=== PATIENT | male | born 1980 ===

== ENCOUNTER 2020-02-23 06:30 | Inpatient (IN) | payer MEDICAID ==
[~2020-02-23] VITALS: Ht 172.7 cm; Wt 51.3 kg
[2020-02-23] MEDS ORDERED: POLYETHYLENE GLYCOL 17 GM PACKET PO PRN (07:00)
[2020-02-23] MEDS ORDERED: BISACODYL 10 MG SUPP PR PRN (07:00)
[2020-02-23] MEDS ORDERED: DOCUSATE 100 MG CAPSULE PO PRN (07:00)
[2020-02-23] MEDS ORDERED: ONDANSETRON ODT 4 MG PO PRN (07:00)
[2020-02-23 12:15] VITALS: BP 124/92
[2020-02-23] MEDS ORDERED: ALBU6.7H8 INH (14:24)
[2020-02-23] MEDS ORDERED: BUSP10TA PO (14:24)
[2020-02-23] MEDS ORDERED: DULO30CA4 PO (14:24)
[2020-02-23] MEDS ORDERED: INSU100V8 SQ (14:24)
[2020-02-23] MEDS ORDERED: INSU100C SQ-INSULIN (14:24)
[2020-02-23] MEDS ORDERED: PLEASE ENTER HEIGHT AND WEIGHT MC SCH (15:00)
[2020-02-23] MEDS ORDERED: ALBUTEROL HFA 90 MCG/SPRAY INH PRN (15:00)
[2020-02-23] MEDS: NICOTINE 21 MG/24 HR PATCH.TD24 TD SCH (15:31)
[2020-02-23] MEDS ORDERED: LORazepam 1MG TABLET PO ONE (16:00)
[2020-02-23] MEDS ORDERED: INSULIN LISPRO 100 UNITS/ML, PEN SQ-INSULIN SCH (16:00)
[2020-02-23 16:21] LABS: MICROSCOPIC NOT IND
[2020-02-23] MEDS ORDERED: INSULIN LISPRO 100 UNITS/ML, PEN SQ-INSULIN ONE (18:00)
[2020-02-23 18:28] LABS: ANION GAP 9 mmol/L (5-15); CALCIUM 9.2 mg/dL (8.5-10.1); CHLORIDE 93 mmol/L (98-107); CREATININE 1.02 mg/dL (0.7-1.3)
[2020-02-23 19:54] VITALS: BP 0/0
[2020-02-23] MEDS: INSULIN GLARGINE 100 UNITS/ML, PEN SQ-INSULIN SCH (20:16)
[2020-02-23] MEDS: INSULIN LISPRO 100 UNITS/ML, PEN SQ-INSULIN SCH (20:16)
[2020-02-23] MEDS ORDERED: INSULIN GLARGINE 100 UNITS/ML, PEN SQ-INSULIN SCH (21:00)
[2020-02-23] MEDS ORDERED: PANCRELIPASE 24,000 CAPSULE.DR PO SCH (21:00)
[2020-02-23] MEDS ORDERED: QUETIAPINE 25MG TABLET PO PRN (22:30)
[2020-02-24 07:40] VITALS: BP 116/84
[2020-02-24] MEDS: INSULIN LISPRO 100 UNITS/ML, PEN SQ-INSULIN SCH ×4 (07:59→21:20)
[2020-02-24] MEDS: NICOTINE 21 MG/24 HR PATCH.TD24 TD SCH (08:01)
[2020-02-24] MEDS: INSULIN GLARGINE 100 UNITS/ML, PEN SQ-INSULIN SCH ×2 (08:01→21:21)
[2020-02-24] MEDS: PANCRELIPASE 24,000 CAPSULE.DR PO SCH ×3 (08:06→17:09)
[2020-02-24 08:34] LABS: ANION GAP 12 mmol/L (5-15); CALCIUM 9.9 mg/dL (8.5-10.1); CHLORIDE 100 mmol/L (98-107)
[2020-02-24 08:41] LABS: CHOL/HDL RATIO 2.5; FREE T4 (FREE THYROXINE) 1.06 ng/dL (0.76-1.46); LDL/HDL RATIO 1.2 (0.5-3.0)
[2020-02-24 12:51] LABS: ANION GAP 10 mmol/L (5-15); CALCIUM 9.4 mg/dL (8.5-10.1); CHLORIDE 98 mmol/L (98-107); CREATININE 0.85 mg/dL (0.7-1.3)
[2020-02-24] MEDS ORDERED: SODIUM CHLORIDE 0.9% 1,000ML IVBOLUS ONE (13:00)
[2020-02-24] MEDS ORDERED: INSULIN LISPRO 100 UNITS/ML, PEN SQ-INSULIN ONE (14:00)
[2020-02-24] MEDS ORDERED: LORazepam 1MG TABLET ONE (14:42)
[2020-02-24] MEDS ORDERED: LORazepam 1MG TABLET PO PRN (15:00)
[2020-02-24] MEDS: LORazepam 1MG TABLET PO PRN ×2 (15:25→21:22)
[2020-02-24] MEDS: QUETIAPINE 25MG TABLET PO PRN (17:09)
[2020-02-24 19:47] VITALS: BP 108/75
[2020-02-24] MEDS: ACETAMINOPHEN 325 MG TABLET PO PRN (19:55)
[2020-02-24] MEDS ORDERED: INSULIN LISPRO 100 UNITS/ML, PEN SQ-INSULIN SCH (21:00)
[2020-02-25] MEDS: QUETIAPINE 25MG TABLET PO PRN ×4 (01:44→22:55)
[2020-02-25] MEDS: LORazepam 1MG TABLET PO PRN ×3 (06:45→19:27)
[2020-02-25 07:06] VITALS: BP 109/79
[2020-02-25] MEDS: THIAMINE 100MG TABLET PO SCH (08:22)
[2020-02-25] MEDS: PANCRELIPASE 24,000 CAPSULE.DR PO SCH ×3 (08:22→16:40)
[2020-02-25] MEDS: FOLIC ACID 1 MG TABLET PO SCH (08:22)
[2020-02-25] MEDS: NICOTINE 21 MG/24 HR PATCH.TD24 TD SCH (08:22)
[2020-02-25] MEDS: VENLAFAXINE XR 37.5MG CAP.ER.24H PO SCH (08:22)
[2020-02-25] MEDS: INSULIN LISPRO 100 UNITS/ML, PEN SQ-INSULIN SCH ×4 (08:23→20:44)
[2020-02-25] MEDS: INSULIN GLARGINE 100 UNITS/ML, PEN SQ-INSULIN SCH ×2 (08:24→20:44)
[2020-02-25 08:27] LABS: ANION GAP 7 mmol/L (5-15); CALCIUM 8.6 mg/dL (8.5-10.1); CHLORIDE 99 mmol/L (98-107)
[2020-02-25 08:28] LABS: CREATININE 0.65 mg/dL (0.7-1.3)
[2020-02-25] MEDS: ACETAMINOPHEN 325 MG TABLET PO PRN (19:27)
[2020-02-25 19:38] VITALS: BP 109/79
[2020-02-26] MEDS: LORazepam 1MG TABLET PO PRN ×3 (05:32→17:25)
[2020-02-26] MEDS: ACETAMINOPHEN 325 MG TABLET PO PRN (05:33)
[2020-02-26 07:08] VITALS: BP 110/70
[2020-02-26] MEDS: THIAMINE 100MG TABLET PO SCH (08:06)
[2020-02-26] MEDS: FOLIC ACID 1 MG TABLET PO SCH (08:06)
[2020-02-26] MEDS: VENLAFAXINE XR 37.5MG CAP.ER.24H PO SCH (08:06)
[2020-02-26] MEDS: PANCRELIPASE 24,000 CAPSULE.DR PO SCH ×3 (08:06→17:25)
[2020-02-26] MEDS: QUETIAPINE 25MG TABLET PO PRN ×3 (08:07→19:31)
[2020-02-26] MEDS: INSULIN LISPRO 100 UNITS/ML, PEN SQ-INSULIN SCH ×4 (08:09→20:53)
[2020-02-26] MEDS: NICOTINE 21 MG/24 HR PATCH.TD24 TD SCH (08:09)
[2020-02-26] MEDS ORDERED: INSULIN GLARGINE 100 UNITS/ML, PEN SQ-INSULIN SCH (09:00)
[2020-02-26 18:14] LABS: ALANINE AMINOTRANSFERASE 35 U/L (12-78); ALBUMIN 3.7 g/dL (3.4-5.0); ANION GAP 11 mmol/L (5-15); CALCIUM 9.2 mg/dL (8.5-10.1); CHLORIDE 102 mmol/L (98-107)
[2020-02-26 18:16] LABS: ALKALINE PHOSPHATASE 87 U/L (45-117); BILIRUBIN,TOTAL 0.3 mg/dL (0.2-1.0); TOTAL PROTEIN 6.8 g/dL (6.4-8.2)
[2020-02-26] MEDS ORDERED: DEXTROSE 50%, 50ML SYRINGE IVPush PRN (19:00)
[2020-02-26] MEDS ORDERED: MAGNESIUM SULFATE PMX 2GM/50ML 50 ML IV ONE (19:00)
[2020-02-26] MEDS ORDERED: DEXTROSE 4 GM TAB.CHEW PO PRN (19:00)
[2020-02-26] MEDS ORDERED: GLUCAGON 1 MG IM PRN (19:00)
[2020-02-26 19:24] LABS: BASOPHILS % (AUTO) 0 % (0-1); EOSINOPHILS % (AUTO) 2 % (1-7); LYMPHOCYTES % (AUTO) 38 % (22-44); MEAN CORPUSCULAR HGB CONC 34.8 g/dL (33.2-36.2); MONOCYTES % (AUTO) 10 % (2-9); NEUTROPHILS % (AUTO) 50 % (42-75); PLATELET COUNT 184 x10^3/uL (130-400); RED BLOOD COUNT 4.68 x10^6/uL (4.38-5.82); RED CELL DISTRIBUTION WIDTH 13.2 % (9.4-14.8)
[2020-02-26 19:25] LABS: MD NO
[2020-02-26] MEDS: SODIUM CHLORIDE FLUSH 10ML SYR IVF SCH (19:35)
[2020-02-26 19:46] VITALS: BP 111/79
[2020-02-26] MEDS: INSULIN GLARGINE 100 UNITS/ML, PEN SQ-INSULIN SCH (20:53)
[2020-02-26] MEDS: QUETIAPINE 100MG TABLET PO SCH (21:00)
[2020-02-27] MEDS: LORazepam 1MG TABLET PO PRN ×4 (01:44→20:47)
[2020-02-27 05:20] LABS: BASOPHILS % (AUTO) 1 % (0-1); EOSINOPHILS % (AUTO) 2 % (1-7); LYMPHOCYTES % (AUTO) 35 % (22-44); MEAN CORPUSCULAR HEMOGLOBIN 33.7 pg (27.5-34.5); MEAN CORPUSCULAR HGB CONC 34.4 g/dL (33.2-36.2); MEAN PLATELET VOLUME 7.8 fL (7.4-10.4); MONOCYTES % (AUTO) 11 % (2-9); NEUTROPHILS % (AUTO) 52 % (42-75); PLATELET COUNT 178 x10^3/uL (130-400); RED BLOOD COUNT 4.58 x10^6/uL (4.38-5.82)
[2020-02-27 05:25] LABS: MD NO
[2020-02-27 05:26] LABS: ALANINE AMINOTRANSFERASE 44 U/L (12-78); ALBUMIN 3.4 g/dL (3.4-5.0); ANION GAP 8 mmol/L (5-15); CALCIUM 8.4 mg/dL (8.5-10.1); CHLORIDE 101 mmol/L (98-107)
[2020-02-27 05:29] LABS: ALKALINE PHOSPHATASE 78 U/L (45-117); BILIRUBIN,TOTAL 0.3 mg/dL (0.2-1.0); CREATINE KINASE, TOTAL 38 U/L (39-308); CREATININE 0.83 mg/dL (0.7-1.3); TOTAL PROTEIN 6.1 g/dL (6.4-8.2)
[2020-02-27] MEDS: QUETIAPINE 25MG TABLET PO PRN ×3 (06:33→18:35)
[2020-02-27 07:14] VITALS: BP 110/71
[2020-02-27] MEDS: INSULIN LISPRO 100 UNITS/ML, PEN SQ-INSULIN SCH ×4 (08:06→20:45)
[2020-02-27] MEDS: PANCRELIPASE 24,000 CAPSULE.DR PO SCH ×3 (08:22→17:03)
[2020-02-27] MEDS: THIAMINE 100MG TABLET PO SCH (08:22)
[2020-02-27] MEDS: FOLIC ACID 1 MG TABLET PO SCH (08:22)
[2020-02-27] MEDS: VENLAFAXINE 75 MG CAP ER PO SCH (08:22)
[2020-02-27] MEDS: NICOTINE 21 MG/24 HR PATCH.TD24 TD SCH (08:23)
[2020-02-27] MEDS: SODIUM CHLORIDE FLUSH 10ML SYR IVF SCH ×2 (08:24→20:49)
[2020-02-27] MEDS ORDERED: INSULIN GLARGINE 100 UNITS/ML, PEN SQ-INSULIN SCH ×2 (09:00→21:00)
[2020-02-27] MEDS ORDERED: VENL75CA6 PO (14:19)
[2020-02-27] MEDS ORDERED: INSU100I13 SQ-INSULIN ×2 (14:19)
[2020-02-27] MEDS ORDERED: NICO-587 TD (14:19)
[2020-02-27] MEDS ORDERED: ALBU18HF INH (14:19)
[2020-02-27] MEDS ORDERED: QUET100T PO (14:19)
[2020-02-27] MEDS ORDERED: QUET25TA7 PO (14:19)
[2020-02-27] MEDS ORDERED: CYANOCOBALAMIN 1,000 MCG/ML, 1ML IM SCH ×2 (18:00→18:30)
[2020-02-27 19:45] VITALS: BP 112/75
[2020-02-27] MEDS: QUETIAPINE 100MG TABLET PO SCH (20:47)
[2020-02-28] MEDS: LORazepam 1MG TABLET PO PRN ×2 (04:57→11:17)
[2020-02-28 06:37] LABS: CHLORIDE 103 mmol/L (98-107)
[2020-02-28 06:46] LABS: ALANINE AMINOTRANSFERASE 40 U/L (12-78); ALBUMIN 3.6 g/dL (3.4-5.0); ALKALINE PHOSPHATASE 72 U/L (45-117); ANION GAP 5 mmol/L (5-15); BILIRUBIN,TOTAL 0.6 mg/dL (0.2-1.0); CREATININE 0.66 mg/dL (0.7-1.3); TOTAL PROTEIN 6.4 g/dL (6.4-8.2)
[2020-02-28 06:47] LABS: BASOPHILS % (AUTO) 0 % (0-1); EOSINOPHILS % (AUTO) 1 % (1-7); LYMPHOCYTES % (AUTO) 28 % (22-44); MEAN CORPUSCULAR HEMOGLOBIN 33.8 pg (27.5-34.5); MEAN CORPUSCULAR HGB CONC 34.3 g/dL (33.2-36.2); MEAN PLATELET VOLUME 7.8 fL (7.4-10.4); MONOCYTES % (AUTO) 11 % (2-9); NEUTROPHILS % (AUTO) 60 % (42-75); PLATELET COUNT 189 x10^3/uL (130-400); RED BLOOD COUNT 4.68 x10^6/uL (4.38-5.82); RED CELL DISTRIBUTION WIDTH 13.1 % (9.4-14.8)
[2020-02-28 06:53] LABS: MD NO
[2020-02-28] MEDS: INSULIN LISPRO 100 UNITS/ML, PEN SQ-INSULIN SCH ×2 (07:00→11:35)
[2020-02-28 07:13] VITALS: BP 108/72
[2020-02-28] MEDS: SODIUM CHLORIDE FLUSH 10ML SYR IVF SCH (08:36)
[2020-02-28] MEDS: QUETIAPINE 25MG TABLET PO PRN ×2 (08:36→14:50)
[2020-02-28] MEDS: THIAMINE 100MG TABLET PO SCH (08:36)
[2020-02-28] MEDS: PANCRELIPASE 24,000 CAPSULE.DR PO SCH ×2 (08:36→11:36)
[2020-02-28] MEDS: FOLIC ACID 1 MG TABLET PO SCH (08:36)
[2020-02-28] MEDS: VENLAFAXINE 75 MG CAP ER PO SCH (08:36)
[2020-02-28] MEDS: NICOTINE 21 MG/24 HR PATCH.TD24 TD SCH (08:39)
[2020-02-28] MEDS ORDERED: INSULIN GLARGINE 100 UNITS/ML, PEN SQ-INSULIN SCH (09:00)
[2020-02-28] MEDS ORDERED: FOLI-17 PO (12:30)
[2020-02-28] MEDS ORDERED: INSU100I11 SQ-INSULIN (12:30)
[2020-02-28] MEDS ORDERED: THIA100T67 PO (12:30)
[2020-02-28] MEDS ORDERED: LIPA1CAP61 PO (12:30)
== END 2020-02-28 16:10 | disposition home or self-care (01) | DRG 751 ==
LOC: 3E 12:29
PROVIDERS: ADMIT Psychiatry & Neurology Psychosomatic Medicine; ATTEND Psychiatry & Neurology Psychosomatic Medicine
DX: F33.2 Major depressive disorder, recurrent severe without psychotic features (principal); R45.851 Suicidal ideations; Z88.8 Allergy status to other drugs, medicaments and biological substances; F41.1 Generalized anxiety disorder; E43 Unspecified severe protein-calorie malnutrition; Z68.1 Body mass index [BMI] 19.9 or less, adult; J45.909 Unspecified asthma, uncomplicated; G47.00 Insomnia, unspecified; F10.20 Alcohol dependence, uncomplicated; E11.65 Type 2 diabetes mellitus with hyperglycemia; K85.90 Acute pancreatitis without necrosis or infection, unspecified; K86.1 Other chronic pancreatitis; Z59.0 Homelessness; Z79.4 Long term (current) use of insulin
CPT/HCPCS: 36415; 71045; 80048; 80053; 80061; 81003; 82550; 82607; 82947; 82962; 83036; 83735; 84100; 84439; 84443; 85025; 86803; 87340; 87806; 93005; G0475; J1815; J3420; J3475; J7030

== ENCOUNTER 2020-05-17 17:44 | Emergency (ER) | payer MEDICAID ==
[~2020-05-17] VITALS: Ht 172.7 cm; Wt 58.5 kg
[~2020-05-17 17:44] MED LIST: ALBU18HF INH; ALBU6.7H8 INH; BUSP10TA PO; DULO30CA4 PO; FOLI1TAB32 PO; INSU100C SQ-INSULIN; INSU100I11 SQ-INSULIN; INSU100I13 SQ-INSULIN; INSU100V8 SQ; LIPA1CAP61 PO; NICO-587 TD; QUET100T PO; QUET25TA7 PO; THIA100T67 PO; VENL75CA6 PO
--- NOTE | 2020-05-17 18:01 | NUR ---
PT AT ED FOR A BLOOD TEST TO DETERMINE IF HE HAS ANY ALCOHOL IN HIS SYSTEM SO HE CAN GO BACK TO HIS DETOX PROGRAM. PT DENIES PHYSICAL COMPLAINT AT THIS TIME.
[2020-05-17 18:48] VITALS: BP 116/85
--- NOTE | 2020-05-17 18:59 | NUR ---
PT REC'VD DC INSTRUCTIONS AND EDUCATION. PT HAD NO FURTHER QUESTIONS. PT AMBULATED TO DC AREA, STEADY GAIT.
== END 2020-05-17 19:01 | disposition home or self-care (01) ==
LOC: ED 18:55
DX: Z00.00 Encounter for general adult medical examination without abnormal findings (principal); F17.210 Nicotine dependence, cigarettes, uncomplicated
CPT/HCPCS: 36415; 80320; 99283; 99406; G0480